=== PATIENT | female | born 1965 | race Caucasian/White ===

== ENCOUNTER 2016-10-10 17:23 | Emergency (ER) | payer MEDICAID ==
[2016-10-10] MEDS ORDERED: AMOXICILLIN TR/POT CLAVULANATE 500-125 MG TAB PO ONE (17:59)
[2016-10-10] MEDS ORDERED: DIPH/PERTUSS(ACELL)/TETANUS VAC/PF 0.5 ML SYR (>=10YO) IM ONE (17:59)
[2016-10-10] MEDS ORDERED: AMOXICILLIN TRIHYD 250 MG CAPSULE PO ONE (17:59)
--- NOTE | 2016-10-10 18:34 | RADIOLOGY REPORT (SQ) ---
EXAM DESCRIPTION: HAND BILATERAL 3 VIEWS COMPLETED DATE/TIME: 10/10/2016 6:25 pm REASON FOR STUDY: dog bite COMPARISON: None. EXAM PARAMETERS: NUMBER OF VIEWS: Three views right hand. Three views left hand. TECHNIQUE: AP, lateral and oblique radiographic images acquired of bilateral hands. LIMITATIONS: None. FINDINGS: RIGHT HAND: MINERALIZATION: Normal. BONES: No acute fracture or dislocation. No worrisome bone lesions. No significant osteophytes. JOINTS: No erosions. No raji-articular osteopenia. No chondrocalcinosis. SOFT TISSUES: No swelling. No calcifications. OTHER: No other significant finding. LEFT HAND: MINERALIZATION: Normal. BONES: No acute fracture or dislocation. No worrisome bone lesions. No significant osteophytes. JOINTS: No erosions. No raji-articular osteopenia. No chondrocalcinosis. SOFT TISSUES: No swelling. No calcifications. OTHER: No other significant finding. IMPRESSION: NEGATIVE STUDY BILATERAL HANDS. NO ACUTE POST-TRAUMATIC CHANGES. TECHNICAL DOCUMENTATION: JOB ID: [id number] [employer]- All Rights Reserved
--- NOTE | 2016-10-10 18:34 | ER Document Report ---
HPI - HPI Patient complains to provider of: dog bite Onset: This afternoon Onset/Duration: Sudden Quality of pain: Sharp Pain Level: 5 Context: Patient states that she was walking her dog in the neighborhood and a neighbor' s dog came up and attacked her dog. Patient states that she did get in the middle of it and she has abrasions to her lower extremities and lacerations to bilateral hands. Associated Symptoms: Other - Dog bite Exacerbated by: Movement Relieved by: Denies Similar symptoms previously: No Recently seen / treated by doctor: No - ROS ROS below otherwise negative: Yes Systems Reviewed and Negative: Yes All other systems reviewed and negative - CONSTITUTIONAL Constitutional: DENIES: Fever, Chills - NEURO Neurology: DENIES: Weakness - GASTROINTESTINAL Gastrointestinal: DENIES: Nausea, Patient vomiting - REPRODUCTIVE Reproductive: DENIES: : - MUSCULOSKELETAL Musculoskeletal: REPORTS: Extremity pain - DERM Skin Color: Normal, [place] Skin Problems: Puncture Wound Past Medical History - General Information source: Patient - Social History Smoking Status: Never Smoker Frequency of alcohol use: Social Drug Abuse: None Occupation: none Lives with: Family Family History: Arthritis, CAD, DM, Hyperlipidemia, Hypertension, Malignancy Neurological Medical History: Reports: Hx Migraine. 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 IN LAST 30 DAYS: No - HEENT HEENT: Atraumatic, Normocephalic - NECK Neck: Normal Inspection - RESPIRATORY Respiratory: Breath Sounds Normal, No Respiratory Distress O2 Sat by Pulse Oximetry: 99 - CARDIOVASCULAR Cardiovascular: Regular Rate, Regular Rhythm Pulses: Normal: Radial - BACK Back: Normal Inspection - NEURO Level of Consciousness: Awake, Alert, Appropriate - DERM Integumentary: Warm, Dry, Laceration - 2 cm lac to volar aspect of right 3rd finger, 1 cm lac to right 2nd finger, superficial lac to left 3rd finger Course - Re-evaluation Re-evalutation: 10/10/16 19:14 Patient repeatedly asking for pain medication. Patient has an active current prescription for Percocet at home and acknowledges that she does have tramadol tablets in addition to Percocet at home. Patient advised that no additional pain medication prescription would be written today. Patient advised to take the medicine that she has at home. Patient also advised to follow-up with orthopedic hand specialist for any continued pain or problems. Patient advised to return in 2 days for wound recheck. Patient advised of proper wound care while at home. Discussed signs or symptoms of infection that patient should return neatly for. - Vital Signs Vital signs: Temp Pulse Resp BP Pulse Ox 98.3 F 80 16 102/73 99 10/10/16 17:43 10/10/16 17:43 10/10/16 17:43 10/10/16 17:43 10/10/16 17:43 - Diagnostic Test Radiology reviewed: Image reviewed, Reports reviewed Procedures - Immobilization Right 3rd digit Pre-Proc Neuro Vasc Exam: Normal Immobilizer type: Finger splint (Static) Performed by: Provider Post-Proc Neuro Vasc Exam: Normal Alignment checked and good: Yes - Laceration/Wound Repair Right 3rd digit Wound length (cm): 2 Wound's Depth, Shape: Irregular Laceration pre-procedure: Other - chlorhexadine Wound explored: No foreign body removed Wound Repaired With: Steri-strips Post-procedure wound care: Sterile dressing applied, Splint applied Post-procedure NV exam normal: Yes Complications: No Notes: 10/10/16 19:13 Patient washed hands with antibacterial soap and flushed wound under running water for about 5-10 minutes while in the department. Patient then soaked hands in water and chlorhexidine solution to aid in cleansing skin wounds Hands front picture: 1 - finger lac Discharge - Discharge Clinical Impression: Dog bite Qualifiers: Encounter type: initial encounter Qualified Code(s): W54.0XXA - Bitten by dog, initial encounter Hand laceration Qualifiers: Encounter type: initial encounter Foreign body presence: without foreign body Laterality: unspecified laterality Qualified Code(s): S61.419A - Laceration without foreign body of unspecified hand, initial encounter Condition: Stable Disposition: HOME, SELF-CARE Instructions: Laceration Care ([facility]), Prophylactic Antibiotic ([facility]), Soap Cleansing ([facility]), Tetanus Immunization Given ([facility]) Additional Instructions: Return immediately for any new or worsening symptoms Followup with your primary care provider, call tomorrow to make a followup appointment Follow-up with orthopedic hand specialist for any continued pain or problems Follow-up with animal control regarding immunization status of the dog that bit you, if it is determined that you need rabies prophylaxis return to the emergency department Prescriptions: Amox Tr/Potassium Clavulanate [Augmentin 875-125 Tablet] 1 tab PO BID 7 Days tablet Referrals: SHAYY AMBROSIO DO [ACTIVE STAFF] - Follow up as needed PEREZ TREVINO DO [Primary Care Provider] - Follow up tomorrow
[2016-10-10] MEDS ORDERED: OXYCODONE-ACETAMINOPHEN 5-325 MG TABLET PO ONE (18:49)
[2016-10-10] MEDS ORDERED: TRAMADOL HCL 50 MG TABLET PO ONE (19:07)
[2016-10-10 19:15] VITALS: BP 117/72
== END 2016-10-10 19:15 | disposition home or self-care (01) ==
LOC: ER 17:23
DX: S61.252A Open bite of right middle finger without damage to nail, initial encounter (principal); S61.250A Open bite of right index finger without damage to nail, initial encounter; S80.87 Other superficial bite of lower leg; W54.0XXA Bitten by dog, initial encounter; Y93.K1 Activity, walking an animal; M79.7 Fibromyalgia
CPT/HCPCS: 99283; 90471; 73130; 90715; J3490 ×2